=== PATIENT | female | born 2000 | race Two or more races ===

== ENCOUNTER 2018-11-08 11:30 | Outpatient (CLI) | payer OTHER | END 2018-11-08 15:33 | disposition home or self-care (01) | LOC: RAD 501 11:30 | DX: M25.531 Pain in right wrist (principal) ==

== ENCOUNTER → 2019-12-07 | Outpatient (CLI) | payer OTHER | END | disposition home or self-care (01) | LOC: LAB 16:45 | DX: J11.1 Influenza due to unidentified influenza virus with other respiratory manifestations (principal); R05 Cough; R53.81 Other malaise ==

== ENCOUNTER 2021-06-22 10:53 | Outpatient (CLI) | payer OTHER | END 2021-06-22 11:01 | disposition home or self-care (01) | LOC: RAD 10:53 | PROVIDERS: ATTEND Orthopaedic Surgery | DX: M25.571 Pain in right ankle and joints of right foot (principal) ==

== ENCOUNTER 2021-08-21 10:20 | Outpatient (CLI) | payer OTHER | END 2021-08-21 10:22 | disposition home or self-care (01) | LOC: RAD 10:20 | PROVIDERS: ATTEND Orthopaedic Surgery | DX: M25.511 Pain in right shoulder (principal); M25.512 Pain in left shoulder ==